=== PATIENT | male | born 1965 | race Caucasian/White ===

== ENCOUNTER 2021-07-17 16:42 | Emergency (ER) | payer MEDICARE, MEDICAID ==
[~2021-07-17] VITALS: Ht 182.9 cm; Wt 80.0 kg
[~2021-07-17 16:42] MED LIST: ATEN-42 MT
[2021-07-17 17:29] LABS: CHLORIDE 96 mEq/L (98-107)
[2021-07-17 17:33] LABS: BASOPHILS % 0.5 % (0.0-2.0); EOSINOPHILS % 1.2 % (0.0-5.0); HEMATOCRIT. 36.4 % (42.0-52.0); HEMOGLOBIN. 11.8 g/dL (14.0-18.0); LYMPHOCYTES % 8.7 % (20.0-50.0); MEAN CORPUSCULAR HEMOGLOBIN 25.5 pg (28.0-32.0); MEAN CORPUSCULAR VOLUME 78.5 fL (80.0-94.0); MEAN PLATELET VOLUME 6.6 fl (7.4-10.4); MONOCYTES % 9.8 % (2.0-8.0); NEUTROPHILS % 79.8 % (40.0-76.0); PLATELET 197 x1000/uL (130-400); RED BLOOD CELL COUNT 4.63 mill/uL (4.7-6.1); RED CELL DISTRIBUTION WIDTH 17.6 % (11.6-14.6)
[2021-07-17 17:49] LABS: BG BASE EXCESS 7.4 mmol/L (-2.0-2.0); BG CARBOXYHEMOGLOBIN 1.4 % (0.5-1.5); BG DEOXYHEMOGLOBIN 3.7 % (0.0-5.0); BG FRACTION INSPIRED OXYGEN 21; BG HCO3 ACT 31.2 mmol/L (22.0-26.0); BG METHEMOGLOBIN 0.2 % (0.0-1.5); BG OXYGEN SATURATION 96.2 % (92.0-98.5); BG OXYHEMOGLOBIN 94.7 % (94.0-97.0); BG PCO2 40.7 mmHg (35.0-45.0); BG PH 7.502 (7.350-7.450); BG PO2 77.8 mmHg (75.0-100.0); BG SAMPLE SITE LEFT RADIAL; BG TOTAL HEMOGLOBIN 12.5 g/dL (12.0-18.0); BG VENT MODE ROOM AIR
[2021-07-17] MEDS ORDERED: HYDROCODONE/ACETAMINOPHEN 10/325MG TABLET PO ONE (20:45)
[2021-07-17 22:24] VITALS: BP 145/85
== END 2021-07-17 23:30 | disposition home or self-care (01) ==
LOC: ER 16:42
DX: M54.9 Dorsalgia, unspecified (principal); I12.0 Hypertensive chronic kidney disease with stage 5 chronic kidney disease or end stage renal disease; N18.6 End stage renal disease; Z98.890 Other specified postprocedural states
CPT/HCPCS: 36415; 36600; 71045; 80053; 82375; 82805; 85025; 93005; 99285

== ENCOUNTER 2021-07-28 14:00 | Emergency (ER) | payer MEDICARE, MEDICAID ==
[~2021-07-28] VITALS: Ht 182.9 cm; Wt 79.0 kg
[2021-07-28] MEDS ORDERED: AMOXICILLIN 500 MG CAPSULE PO ONE (16:00)
[2021-07-28] MEDS ORDERED: ACETAMINOPHEN WITH CODEINE 300/30MG TABLET PO ONE (16:00)
[2021-07-28] MEDS ORDERED: T3 PO (16:18)
[2021-07-28] MEDS ORDERED: AMOX-494 MT (16:18)
[2021-07-28 16:49] VITALS: BP 148/85
== END 2021-07-28 16:51 | disposition home or self-care (01) ==
LOC: ER 16:06
DX: M79.10 Myalgia, unspecified site (principal); K08.89 Other specified disorders of teeth and supporting structures; M54.89 Other dorsalgia; I12.0 Hypertensive chronic kidney disease with stage 5 chronic kidney disease or end stage renal disease; N18.6 End stage renal disease; Z89.022 Acquired absence of left finger(s); Z99.2 Dependence on renal dialysis
CPT/HCPCS: 99283